=== PATIENT | female | born 1965 | race African-American/Black ===

== ENCOUNTER 2018-10-13 09:46 | Observation (INO) | payer BC ==
[~2018-10-13] VITALS: Ht 165.1 cm; Wt 81.8 kg
[2018-10-13] MEDS ORDERED: BAYER CHEWABLE81 MG PO (09:57)
[2018-10-13] MEDS ORDERED: PRAVACHOL20 MG PO (09:57)
[2018-10-13] MEDS ORDERED: GLUCOPHAGE1000 MG PO (09:57)
[2018-10-13] MEDS ORDERED: INVOKANA300 MG PO (09:57)
[2018-10-13] MEDS ORDERED: PROZAC20 MG PO (09:57)
[2018-10-13 10:45] LABS: HEMATOCRIT 40.8 % (36.0-48.0); HEMOGLOBIN 13.4 g/dL (12-16); MCH 25.2 pg (26.0-34.0); MCHC 32.8 g/dL (31.0-37.0); MCV 76.8 fL (80.0-100.0); MEAN PLATELET VOLUME 10.1 fL (7.4-10.4); PLATELET COUNT 224 10x3/uL (130-400); RBC 5.31 10x6/uL (4.00-5.40); RDW 14.6 % (11.5-14.5); WBC 6.2 10x3/uL (4.8-10.8)
[2018-10-13 10:50] LABS: ALKALINE PHOSPHATASE 99 U/L (46-116); ALT (SGPT) 15 U/L (10-68); BILIRUBIN - TOTAL 0.45 mg/dL (0.2-1.3); CALC OSMOLALITY 283 mosm/kg (275-300); CALCIUM 9.8 mg/dL (8.5-10.1); CARBON DIOXIDE 24.6 mmol/L (21.0-32.0); CHLORIDE - SERUM 105 mmol/L (98-107); GLUCOSE 98 mg/dL (74-106); SODIUM 142 mmol/L (136-145); UREA NITROGEN 15 mg/dL (7-18); eGFR NON AFRICAN AMERICAN 61 mL/min (90-120)
[2018-10-13 10:56] LABS: AMYLASE - SERUM 55 U/L (25-115); LIPASE 147 U/L (73-393)
[2018-10-13 11:01] LABS: TROPONIN-I < 0.017 ng/mL (0.000-0.060)
[2018-10-13 11:06] LABS: APPEARANCE SL CLDY (CLEAR); BACTERIA MANY /hpf (NONE SEEN); BILIRUBIN NEGATIVE (NEGATIVE); COLOR YELLOW (YELLOW); GLUCOSE 1000 mg/dL (NEGATIVE); KETONE NEGATIVE (NEGATIVE); NITRITE NEGATIVE (NEGATIVE); PROTEIN NEGATIVE (NEGATIVE); SPECIFIC GRAVITY 1.015 (1.005-1.020); UROBILINOGEN NORMAL (NORMAL); WHITE CELLS - URINE 0-5 /hpf (0-5)
[2018-10-13 11:07] LABS: AMORPHOUS SEDIMENT <1+ /lpf (NONE SEEN); EPITHELIAL CELLS 0-5 /hpf (0-5); MUCUS <1+ /lpf (NONE SEEN); RED CELLS - URINE RARE /hpf (0-5)
[2018-10-13 11:46] LABS: LYMPHOCYTES 48 % (15-50); MONOCYTES 13 % (2-11); NEUTROPHILS 39 % (40-80); PLATELET ESTIMATE NORMAL
[2018-10-13 11:47] LABS: ROULEAUX OCC
[2018-10-13 11:50] VITALS: BP 111/60
[2018-10-13 12:30] VITALS: BP 124/79
[2018-10-13 13:00] VITALS: BP 135/79
[2018-10-13 14:00] VITALS: BP 129/86
[2018-10-13] MEDS ORDERED: TORADOL10 MG PO (14:10)
[2018-10-13] MEDS ORDERED: ZOFRAN8 MG PO (14:10)
[2018-10-13 17:51] VITALS: BP 105/59; Ht 165.1 cm; Wt 81.8 kg
--- NOTE | 2018-10-13 19:30 | NUR ---
PT SITTING UP IN BED WITHOUT DISTRESS, ALERT AND ORIENTED. STATES PAIN TO RUQ 5/10. IV LEFT FA INFUSING NS @ 75. GAVE TORADOL FOR PAIN. REMINDED PT SHE IS NPO AFTER MN, VERBALIZED UNDERSTANDIND. DENIES OTHER NEEDS AT THIS TIME. CL IN REACH, WILL CTM
--- NOTE | 2018-10-13 20:00 | NUR ---
PT REMINDED SHE IS NPO AFTER MN, VERBALIZES UNDERSTANDING
--- NOTE | 2018-10-13 22:00 | NUR ---
FSBS 107, NO COVERAGE PER SS. DENIES NEEDS, CL IN REACH
[2018-10-13 22:24] VITALS: BP 117/63
--- NOTE | 2018-10-14 | NUR ---
PT STATES PAIN IN ABD 08/10, GAVE TORADOL ORDERED. DENIES OTHER NEEDS
[2018-10-14 03:48] VITALS: BP 98/56
--- NOTE | 2018-10-14 04:00 | NUR ---
FSBS 80, NO COVERAGE PER SS. PT HAS BEEN NPO. DENIES NEEDS. CL IN REACH, WILL CTM
[2018-10-14 06:49] VITALS: BP 109/64
[2018-10-14 07:22] LABS: BASOPHILS 0.2 % (0-2); EOSINOPHILS 1.2 % (0-7); HEMATOCRIT 38.7 % (36.0-48.0); HEMOGLOBIN 12.3 g/dL (12-16); IMMATURE GRANULOCYTES 0.2 % (0-5); LYMPHOCYTES 62.8 % (15-50); MCH 24.9 pg (26.0-34.0); MCHC 31.8 g/dL (31.0-37.0); MCV 78.3 fL (80.0-100.0); MEAN PLATELET VOLUME 10.9 fL (7.4-10.4); MONOCYTES 8.4 % (2-11); NEUTROPHILS 27.2 % (40-80); PLATELET COUNT 232 10x3/uL (130-400); RBC 4.94 10x6/uL (4.00-5.40); RDW 14.7 % (11.5-14.5); WBC 5.8 10x3/uL (4.8-10.8)
[2018-10-14 07:48] LABS: ALBUMIN 3.4 g/dL (3.4-5.0); ANION GAP 15.8 mmol/L (8-16); BILIRUBIN - TOTAL 0.34 mg/dL (0.2-1.3); CALCIUM 8.8 mg/dL (8.5-10.1); CARBON DIOXIDE 24.7 mmol/L (21.0-32.0); MAGNESIUM - SERUM 1.9 mg/dL (1.8-2.4); PHOSPHOROUS 4.1 mg/dL (2.5-4.9); POTASSIUM - SERUM 4.5 mmol/L (3.5-5.1); PROTEIN - SERUM 7.3 g/dL (6.4-8.2)
--- NOTE | 2018-10-14 08:51 | NUR ---
PATIENT RECIEVED RESTING WITH NO NEEDS VOICED. PATIETN NPO FOR PIPIDA SCAN TODAY. CL IN REACH
[2018-10-14 10:17] VITALS: BP 110/64
[2018-10-14] MEDS ORDERED: Levaquin PO (14:06)
[2018-10-14] MEDS ORDERED: MIRALAX17 GM PO (14:07)
--- NOTE | 2018-10-14 16:00 | NUR ---
IV REMOVED WITH NO REDNESS OR EDEMA AT SITE. DISCHARGE INSTRUCTIONS GIVEN TO PATIENT WITH UNDERSTANDING VOICED. PATIENT TAKEN TO PRIVATE CAR
[2018-10-15] MEDS ORDERED: BENTYL10 MG PO (21:35)
== END 2018-10-14 16:09 | disposition home or self-care (01) ==
LOC: D.ER 09:46 → D.MS 16:48 → OBSVTIME 16:49 → D.MS 10-14 16:09
PROVIDERS: Family Medicine; ADMIT Internal Medicine Nephrology; ATTEND Internal Medicine Nephrology
DX: R10.11 Right upper quadrant pain (principal); E11.9 Type 2 diabetes mellitus without complications; N39.0 Urinary tract infection, site not specified; K59.00 Constipation, unspecified

== ENCOUNTER 2018-10-15 21:10 | Emergency (ER) | payer BC ==
[~2018-10-15] VITALS: Ht 165.1 cm; Wt 81.6 kg
[~2018-10-15 21:10] MED LIST: BAYER CHEWABLE81 MG PO; GLUCOPHAGE1000 MG PO; INVOKANA300 MG PO; Levaquin PO; MIRALAX17 GM PO; PRAVACHOL20 MG PO; PROZAC20 MG PO; TORADOL10 MG PO; ZOFRAN8 MG PO
[2018-10-15 21:14] VITALS: Ht 165.1 cm; Wt 81.6 kg
[2018-10-15] MEDS ORDERED: BENTYL10 MG PO (21:35)
[2018-10-15 22:38] VITALS: BP 99/64
== END 2018-10-15 22:38 | disposition home or self-care (01) ==
LOC: D.ER 21:10
DX: R10.9 Unspecified abdominal pain (principal); E11.9 Type 2 diabetes mellitus without complications